=== PATIENT | male | born 1985 | race Caucasian/White ===

== ENCOUNTER 2018-09-29 19:36 | Emergency (ER) | payer MEDICAID ==
[~2018-09-29] VITALS: Ht 172.7 cm; Wt 78.5 kg
--- NOTE | 2018-09-29 19:42 | NUR ---
PT BIBRA FROM THE STREET FOR "BIZARRE BEHAVIOR"; PT VERBALLY RESPONSIVE, NOT ANSWERING QUESTION APPROPRIETLY, PT TO BED 14, NAD NOTED, PENDING MD MACEDO
[2018-09-29] MEDS ORDERED: LORAZEPAM INJ 2 MG/ML VIAL IV ONE (20:00)
[2018-09-29] MEDS ORDERED: IV NS 0.9% 1,000 ML IV ONE (20:00)
[2018-09-29 20:01] LABS: BASOPHILS % (AUTO) 0.2 % (0.0-2.0); EOSINOPHILS % (AUTO) 0.6 % (0.0-6.0); HEMATOCRIT 41 % (39-51); LYMPHOCYTES # (AUTO) 1.8 /CMM (0.8-4.8); LYMPHOCYTES % (AUTO) 24.5 % (20.0-44.0); MEAN CORPUSCULAR HGB CONC 35 g/dl (31.0-36.0); MEAN CORPUSCULAR VOLUME 90 fL (80-96); MONOCYTES # (AUTO) 0.7 /CMM (0.1-1.30); NEUTROPHILS # (AUTO) 4.9 /CMM (1.8-8.9); NEUTROPHILS % (AUTO) 65.7 % (43.0-81.0); PLATELET COUNT (AUTO) 233 /CMM (150-450); RED BLOOD CELL COUNT(AUTO) 4.53 MIL/uL (4.5-6.0); WHITE BLOOD COUNT (AUTO) 7.4 K/uL (4.3-11.0)
[2018-09-29 20:08] LABS: CALCIUM, SERUM 7.9 mg/dL (8.5-10.1); CARBON DIOXIDE 31 mmol/L (21-32); CHLORIDE 103 mmol/L (98-107); GLUCOSE 100 mg/dL (74-106); POTASSIUM 3.7 mmol/L (3.5-5.1); SODIUM SERUM 141 mmol/L (136-145); UREA NITROGEN, BLOOD 7 mg/dL (7-18)
[2018-09-29 20:14] LABS: ALANINE AMINOTRANSFERASE 28 U/L (12-78); ALBUMIN 3.9 g/dL (3.4-5.0); ALCOHOL, BLOOD < 3 mg/dL (0-0); ALKALINE PHOSPHATASE 73 U/L (46-116); ASPARTATE AMINOTRANSFERASE 18 U/L (15-37); BILIRUBIN,DIRECT 0.1 mg/dL (0.0-0.2); BILIRUBIN,TOTAL 0.4 mg/dL (0.2-1.0); TOTAL PROTEIN, SERUM 7.2 g/dL (6.4-8.2)
[2018-09-29 20:17] LABS: ACETAMINOPHEN < 10 ug/ml (10-30); SALICYLATE 1.1 mg/dL (2.8-20.0)
[2018-09-29 21:00] VITALS: BP 130/90
--- NOTE | 2018-09-29 21:45 | NUR ---
Patient discharged to home in stable condition. Written and verbal after care instructions given. Patient verbalizes understanding of instruction. IV removed. Catheter intact and site benign. Pressure and 4x4 applied to site. No bleeding noted.
== END 2018-09-29 21:48 | disposition home or self-care (01) ==
LOC: ER 19:43
DX: F41.9 Anxiety disorder, unspecified (principal); R41.82 Altered mental status, unspecified; Z60.2 Problems related to living alone
CPT/HCPCS: 36415; 70450; 80048; 80076; 80307; 80329; 82550; 85025; 96361; 96374; 99284; G0480; J2060; J7030